=== PATIENT | female | born 1955 | race Caucasian/White ===

== ENCOUNTER 2017-08-12 08:00 | Outpatient (CLI) | payer OTHER | END 2017-08-12 08:01 | disposition home or self-care (01) | LOC: BICCT 08:00 | PROVIDERS: ATTEND Family Medicine | DX: R31.9 Hematuria, unspecified (principal); N20.0 Calculus of kidney | CPT/HCPCS: 74176 ==

== ENCOUNTER 2017-10-12 08:27 | Outpatient (CLI) | payer OTHER ==
[2017-10-12 08:59] LABS: Estimated GFR-MDRD - POC Greater than 90
--- NOTE | 2017-10-12 11:00 | CT ---
CT ABDOMEN AND PELVIS WITH AND WITHOUT IV CONTRAST: DATE: 10/12/17. PROVIDED CLINICAL HISTORY: Hematuria. FINDINGS: No comparison examinations are currently available. Visualized lung bases are free of significant opacity. Diffuse fatty infiltration of the liver is no pablo. Changes of prior cholecystectomy and appendectomy are noted. The spleen, pancreas, and adrenal glands appear unremarkable. There are tiny nonobstructing calculi present within each kidney, greater on the right. No evidence for ureteral or bladder calculus. The urinary bladder is incompletely distended and suboptimally hina luated, but appears grossly normal. There is no bowel dilatation, inflammatory fat stranding, free fluid, or lymph node enlargement appar ent. Scattered vascular calcifications are seen. The osseous structures demonstrate no concerning osteobl astic or osteolytic lesions. IMPRESSION: 1. Tiny bilateral nonobstructing nephrolithiasis. 2. Fatty infiltration of the liver. POS: TPC
== END 2017-10-12 08:28 | disposition home or self-care (01) ==
LOC: CT 08:27
PROVIDERS: ATTEND Urology
DX: R31.0 Gross hematuria (principal); N20.0 Calculus of kidney; K76.0 Fatty (change of) liver, not elsewhere classified
CPT/HCPCS: 74178

== ENCOUNTER 2020-06-26 10:55 | Inpatient (IN) | payer OTHER ==
[2020-06-26 12:47] LABS: Troponin I Less than 0.010 ng/mL (< 0.028)
[2020-06-26] MEDS ORDERED: Nitroglycerin 0.4 MG TAB 1 EACH ONE (15:10)
[2020-06-26] MEDS ORDERED: Acetaminophen 325 MG TAB PO PRN (15:42)
[2020-06-26] MEDS ORDERED: Nitroglycerin 0.4 MG TAB (25 Tab Bottle) SL PRN (15:45)
--- NOTE | 2020-06-26 15:52 | PDOC.HHP ---
Hospitalist HPI - History of Present Illness Chest pain History of Present Illness: Patient is a 64-year-old female with a history of diabetes and hyperlipidemia. Patient presented to the emergency department with chest pain. Patient reports that over the last 20 years she has had approximately 7 heart caths. All of these have been negative. All of them were related to chest pain. The last one was about 6 years ago. Patient reports that she had an episode of chest pain about 1 month ago in the night. She basically decided if it killed her it would kill her and she went back to sleep. She then started having intermittent chest pain again a couple of days ago. Pain lasts for minutes not hours and resolve spontaneously. She has some mild associated shortness of breath and occasional lightheadedness. It feels like a rag being twisted to be run out in her chest. She has no radiation of that pain and no associated nausea. Today when she presented to the emergency room initially it was a 10 out of 10 it has recurred in the emergency department and is a 6 out of 10. Initially she did receive medications including Lopressor, aspirin, nitroglycerin and opiates. With that her pain improved but her blood pressure did drop somewhat. Of note, the patient reports she has been on phentermine for the last 3 to 4 weeks in an effort to lose weight to help her back pain. ED Course: As stated the patient did receive some treatment for her chest pain and had some drop in her blood pressure requiring a bit of fluids. Subsequent chest pain necessitating nitrates did not drop the blood pressure any further. Hospitalist ROS - Review of Systems Constitutional: denies: fever, chills Respiratory: denies: cough, shortness of breath Cardiovascular: reports: chest pain, light headedness. denies: palpitations Gastrointestinal: denies: nausea, vomiting, abdominal pain, diarrhea, constipation All other systems reviewed; all pertinent +/- noted in HPI/Subj - Medication Medications: metFORMIN TueJun 26, 2020 13:34 VALERIE [place] tablet : Strength - 1,000 mg : ORAL Patient Dose: 1000 mg 2 times a day. atorvastatin TueJun 26, 2020 13:34 VALERIE [place] tablet : Strength - 20 mg : ORAL Patient Dose: 20 mg once a day (in the morning). zolpidem oral TueJun 26, 2020 13:35 VALERIE [place] tablet : Strength - 10 mg : ORAL Patient Dose: 10 mg once a day (in the morning). FLUoxetine TueJun 26, 2020 13:35 VALERIE [place] [place] capsule : Strength - 20 mg : ORAL Patient Dose: 20 mg once a day (in the morning). Januvia TueJun 26, 2020 13:36 VALERIE [place] tablet : Strength - 100 mg : ORAL Patient Dose: 100 mg once a day (in the morning). phentermine TueJun 26, 2020 13:36 VALERIE [place] [place] capsule : Strength - 37.5 mg : ORAL Patient Dose: 37.5 mg. traMADol TueJun 26, 2020 13:37 VALERIE [place] [place] capsule,ER biphase 24 hr 25-75 : Strength - 100 mg : ORAL Patient Dose: 50 mg As Needed. Hospitalist History - Past Medical History Cardiac: reports: Hyperlipidemia Musculoskeletal: reports: Chronic low back pain Renal/: reports: Other (Kidney stones) Endocrine: reports: Diabetes - Past Surgical History Other Surgical History: Left knee replacement vaginal hysterectomy. Appendectomy. Cholecystectomy. Back surgery. Spinal cord stimulator. - Family History Other Family History: Both parents had significant coronary disease. - Social History Smoking Status: Never smoker Alcohol: reports: None Drugs: reports: none Living Situation: With Family - Exam General Appearance: NAD, awake alert General - other findings: Appears a bit uncomfortable with the episode of chest pain. Eye: PERRL ENT: normocephalic atraumatic, no oropharyngeal lesions, moist mucosa Neck: supple, symmetric, no JVD, no thyromegaly, no lymphadenopathy, no carotid bruit Heart: RRR, no murmur, no gallops, no rubs, normal peripheral pulses Respiratory: CTAB, no wheezes, no rales, no ronchi, normal chest expansion, no tachypnea, normal percussion Gastrointestinal: soft, non-tender, non-distended, normal bowel sounds, no palpable masses, no hepatomegaly, no splenomegaly, no bruit Extremities: no cyanosis, no clubbing, no edema Skin: normal turgor, no lesions, no rashes Neurological: cranial nerve grossly intact, normal sensation to touch, no weakness, no focal deficits, no new deficit Musculoskeletal: normal tone, normal strength, no muscle wasting Hospitalist Results - Labs Lab results: Troponin I Less than 0.010 ng/mL (< 0.028) 06/26/20 12:02 - EKG Interpretation EKG: Nonspecific T wave changes. - Radiology Interpretation Chest x-ray Status: image reviewed by me, report reviewed by me Additional Comment: Negative Hospitalist H&P A/P - Problem (1) Chest pain Code(s): R07.9 - CHEST PAIN, UNSPECIFIED Status: Acute (2) Hyperlipidemia Code(s): E78.5 - HYPERLIPIDEMIA, UNSPECIFIED Status: Acute (3) Diabetes mellitus Code(s): E11.9 - TYPE 2 DIABETES MELLITUS WITHOUT COMPLICATIONS Status: Acute - Plan Plan: Chest pain: Patient has had 2 - troponins at this point. Her EKG is nondiagnostic but shows no evidence of significant ischemia. She has had a total of 7 heart caths in the past 20 years. All of them were negative. She reports that the last one was about 6 years ago. Her does have some of her records on his phone and is able to show me her information. She had some nonspecific EKG changes then as well. She also had additional work-up including CTA of the chest which was negative. Her symptoms certainly are concerning but given her history it seems less likely that this is cardiac in nature. However she does have risk factors. Will keep in observation. Maintain telemetry. Continue monitoring troponins. If they remain negative will perform a cardiac stress test in the morning. She also has an abnormal BNP. Therefore we will check an echocardiogram. Diabetes mellitus: Continue with Metformin and Januvia. Diabetic diet. Accu-Cheks. Hyperlipidemia: Continue atorvastatin. Chronic back pain: Continue with her tramadol and zolpidem.
[2020-06-26 15:56] LABS: Troponin I Less than 0.010 ng/mL (< 0.028)
[2020-06-26] MEDS ORDERED: traMADol HCl 50 MG TAB PO PRN (16:01)
[2020-06-26] MEDS ORDERED: Zolpidem Tartrate 5 MG TAB PO PRN (16:01)
[2020-06-26] MEDS ORDERED: Dextrose 5% in Water 1,000 ML IV PRN (16:07)
[2020-06-26] MEDS ORDERED: Dextrose 50% Abboject 50 ML SYRINGE SLOW IVP PRN (16:07)
[2020-06-26] MEDS ORDERED: HumaLOG 300 UNITS/3 ML VIAL SC PRN (16:07)
[2020-06-26] MEDS: metFORMIN 500 MG TAB PO SCH (18:39)
[2020-06-26] MEDS ORDERED: Atorvastatin Calcium 20 MG TAB PO SCH (21:00)
[2020-06-26] MEDS: Famotidine 20 MG TAB PO SCH (22:01)
[2020-06-26] MEDS: Alogliptin 25 MG TAB PO SCH (22:01)
[2020-06-26 23:48] VITALS: BMI 25.4
[2020-06-27 04:28] LABS: SARS-CoV-2 MS2 Positive; SARS-CoV-2 N Gene Negative; SARS-CoV-2 S Gene Negative; SARS-CoV-2 by NAA Not Detected (NotDetected); SARS-CoV-2 orf1ab Negative
[2020-06-27 04:34] LABS: #Basophils 0.1 thou/uL (0.0-0.2); #Eosinphils 0.2 thou/uL (0.0-0.7); #Monocytes 0.6 thou/uL (0.11-0.59); #Neutrophils 4.5 thou/uL (1.40-6.50); %Basophils 1.2 % (0.0-1.0); %Eosinophils 2.1 % (0.0-10.0); %Lymphocytes 27.7 % (21.0-51.0); %Monocytes 7.6 % (0.0-10.0); %Neutrophils 61.4 % (42.0-75.0); Hemoglobin 12.7 g/dL (12.0-16.0); Mean Corpuscular HGB CONC 33.1 g/dL (32.0-36.0); Mean Corpuscular Hemoglobin 29.6 pg (27.0-31.0); Mean Corpuscular Volume 89.5 fL (78.0-98.0); Mean Platelet Volume 9.1 fL (7.4-10.4); Platelet Count 176 thou/uL (130-400); Red Blood Cell (RBC) Count 4.28 mill/uL (4.20-5.40); White Blood Cell (WBC) Count 7.4 thou/uL (4.8-10.8)
[2020-06-27 04:55] LABS: Anion Gap 13 mmol/L (10-20); BUN (Urea Nitrogen) 14 mg/dL (9.8-20.1); Calc. Creatinine Clearance 88 mL/min (70-130); Calcium 8.7 mg/dL (7.8-10.44); Carbon Dioxide 27 mmol/L (23-31); Chloride 105 mmol/L (98-107); Estimated GFR-MDRD 80; Glucose 95 mg/dL (80-115); Potassium 4.1 mmol/L (3.5-5.1); Sodium 141 mmol/L (136-145)
[2020-06-27] MEDS: Famotidine 20 MG TAB PO SCH ×2 (08:31→21:46)
[2020-06-27] MEDS: Enoxaparin Sodium 40 MG/0.4 ML SYRINGE SC SCH (08:31)
[2020-06-27] MEDS: metFORMIN 500 MG TAB PO SCH ×2 (08:31→21:45)
[2020-06-27] MEDS: FLUoxetine HCl 20 MG CAP PO SCH (08:31)
[2020-06-27] MEDS ORDERED: Alogliptin 25 MG TAB PO SCH (09:00)
--- NOTE | 2020-06-27 13:35 | NM ---
Exam: Nuclear medicine cardiac stress with EF and wall motion HISTORY: Chest pain. Dyslipidemia. TECHNIQUE: Patient was administered 9.6 mCi of technetium 99m sestamibi for rest imaging and 32.60 mC i of technetium minus is made for stress imaging. Cardiac gating is performed FINDINGS: There is a fixed defect involving the septum. No evidence of reversibility. TID is 1.11 End-diastolic volume is 159 mL End-systolic volume is 222 mL Cardiac gating: There is decreased wall motion and thickening, due to global hypokinesis. 24 % ejecti on fraction IMPRESSION: 1. Fixed defect in the septum. 2. Global hypokinesis. 24 % ejection fraction.
[2020-06-27] MEDS ORDERED: ADENOSINE 60 MG/20 ML VIAL ONE (14:52)
--- NOTE | 2020-06-27 18:14 | PDOC.HOSPP ---
- Subjective Encounter Date: 06/27/20 Encounter Time: 10:30 Subjective: pt up in bed no complains - Objective Vital Signs & Weight: Vital Signs (12 hours) Temp Pulse Resp BP Pulse Ox 06/27/20 12:33 97.4 F L 102 H 16 99/54 L 98 06/27/20 08:00 97.4 F L 88 16 106/53 L 100 Weight Weight 158 lb I&O: 06/26/20 06/27/20 06/28/20 06:59 06:59 06:59 Intake Total 230 Balance 230 Result Diagrams: 06/27/20 04:15 06/27/20 04:15 Additional Labs: Accuchecks 06/27/20 06/27/20 06/26/20 16:55 06:06 20:20 POC Glucose 116 H 100 128 H 06/26/20 16:48 POC Glucose 118 H Hospitalist ROS - Review of Systems Cardiovascular: denies: chest pain, palpitations, orthopnea, paroxysmal noc. dyspnea, edema, light headedness, other Gastrointestinal: denies: nausea, vomiting, abdominal pain, diarrhea, constipation, melena, hematochezia, other Genitourinary: denies: dysuria, frequency, incontinence, hematuria, retention, other - Medication Medications: Active Medications Generic Name Dose Route Start Last Admin Trade Name Chaseq PRN Reason Stop Dose Admin Alogliptin Benzoate 25 mg 06/26/20 21:00 06/26/20 22:01 Alogliptin 25 Mg Tab PO 25 mg HS NOLAN Administration Enoxaparin Sodium 40 mg 06/27/20 09:00 06/27/20 08:31 Enoxaparin Sodium 40 Mg/0.4 Ml Syringe SC 40 mg 0900 NOLAN Administration Famotidine 20 mg 06/26/20 21:00 06/27/20 08:31 Famotidine 20 Mg Tab PO 20 mg BID NOLAN Administration Fluoxetine HCl 20 mg 06/27/20 09:00 06/27/20 08:31 Fluoxetine Hcl 20 Mg Cap PO 20 mg DAILY NOLAN Administration - Exam Neck: negative: supple, symmetric, no JVD, no thyromegaly, no lymphadenopathy, no carotid bruit, JVD Heart: negative: RRR, no murmur, no gallops, no rubs, normal peripheral pulses, irregular, diminshed peripheral pulses, murmur present, II/IV, III/IV Respiratory: negative: CTAB, no wheezes, no rales, no ronchi, normal chest expansion, no tachypnea, normal percussion, rales, rhonchi, tachypneic, wheezes Hosp A/P (1) Acute systolic heart failure Code(s): I50.21 - ACUTE SYSTOLIC (CONGESTIVE) HEART FAILURE Status: Acute (2) Chest pain Code(s): R07.9 - CHEST PAIN, UNSPECIFIED Status: Acute (3) Diabetes mellitus Code(s): E11.9 - TYPE 2 DIABETES MELLITUS WITHOUT COMPLICATIONS Status: Acute - Plan Patient's stress test indicated fixed defect and a low EF of 25%. We will get records from [facility]. Her last catheterization was in 2014. Patient takes phentermine for weight loss. She states that she has taken it 3 times. She took it last month. However her symptoms of chest pain were there prior to that. Will consult cardiology. We will check a TSH. Start her on low-dose carvedilol. We will also start her on aspirin.
[2020-06-27] MEDS: traMADol HCl 50 MG TAB PO PRN (19:44)
[2020-06-27] MEDS: Atorvastatin Calcium 20 MG TAB PO SCH (21:46)
[2020-06-27] MEDS: Zolpidem Tartrate 5 MG TAB PO PRN (21:46)
[2020-06-27] MEDS: Alogliptin 25 MG TAB PO SCH ×2 (21:46→22:37)
[2020-06-28 04:39] LABS: #Eosinphils 0.1 thou/uL (0.0-0.7); #Lymphocytes 2.2 thou/uL (1.20-3.40); #Monocytes 0.5 thou/uL (0.11-0.59); %Basophils 0.3 % (0.0-1.0); %Eosinophils 1.9 % (0.0-10.0); %Monocytes 6.8 % (0.0-10.0); Hemoglobin 13.8 g/dL (12.0-16.0); Mean Corpuscular HGB CONC 33.4 g/dL (32.0-36.0); Mean Corpuscular Hemoglobin 30.1 pg (27.0-31.0); Mean Corpuscular Volume 90.1 fL (78.0-98.0); Mean Platelet Volume 9.6 fL (7.4-10.4); Platelet Count 181 thou/uL (130-400); Red Blood Cell (RBC) Count 4.58 mill/uL (4.20-5.40); White Blood Cell (WBC) Count 6.8 thou/uL (4.8-10.8)
[2020-06-28 05:00] LABS: Anion Gap 12 mmol/L (10-20); BUN (Urea Nitrogen) 14 mg/dL (9.8-20.1); Calc. Creatinine Clearance 85 mL/min (70-130); Calcium 9.2 mg/dL (7.8-10.44); Carbon Dioxide 27 mmol/L (23-31); Chloride 107 mmol/L (98-107); Estimated GFR-MDRD 77; Glucose 101 mg/dL (80-115); Potassium 4.4 mmol/L (3.5-5.1); Sodium 142 mmol/L (136-145)
[2020-06-28] MEDS: traMADol HCl 50 MG TAB PO PRN (10:08)
[2020-06-28] MEDS: metFORMIN 500 MG TAB PO SCH ×2 (10:09→20:45)
[2020-06-28] MEDS: Enoxaparin Sodium 40 MG/0.4 ML SYRINGE SC SCH (10:09)
[2020-06-28] MEDS: Famotidine 20 MG TAB PO SCH ×2 (10:09→20:43)
[2020-06-28] MEDS: FLUoxetine HCl 20 MG CAP PO SCH (10:09)
[2020-06-28] MEDS: Aspirin 81 mg Enteric Coated Tablet PO SCH (10:09)
[2020-06-28] MEDS: Carvedilol 3.125 MG TAB PO SCH ×2 (10:09→17:25)
[2020-06-28] MEDS ORDERED: Communication Order-Pharmacy FS SCH (12:15)
--- NOTE | 2020-06-28 12:55 | CON ---
DATE OF CONSULTATION: 06/28/2020 REASON FOR CONSULTATION: Severely depressed left ventricular function, chest pain. HISTORY OF PRESENT ILLNESS: Ms. Knox is a 64-year-old woman. She has been having pressure and heaviness in her chest and severe fatigue with any type of exertion since she can walk just a very short distance and became extremely fatigued and worn out. This has been gradually for the last few weeks. Finally, she has been admitted to the hospital for evaluation. The patient did undergo cardiac catheterization. She said "I have had several cardiac catheterizations," most recently was in 2014, it was done at [facility] in [place], it was normal with no evidence of any blockage. The patient was having chest pain at that time, but it is more intense now. The patient continues to have chest pain intermittently here at rest. HOME MEDICATIONS: She takes, 1. Januvia. 2. Atorvastatin. 3. Metformin. 4. Tramadol. 5. Zolpidem. Her blood pressure tends to run low. ALLERGIES: NO ALLERGIES. SOCIAL HISTORY: No alcohol or tobacco. REVIEW OF SYSTEMS: CONSTITUTIONAL: No significant weight gain or loss. VISION: No changes. HEARING: No changes. PULMONARY: No cough or wheezing. GASTROINTESTINAL: No nausea, vomiting, or diarrhea. SKIN: No rashes. NEUROLOGIC: No unilateral weakness or numbness. PSYCHIATRIC: No unusual depression or anxiety. PHYSICAL EXAMINATION: GENERAL: This is a very pleasant patient, in no distress. VITAL SIGNS: Blood pressure earlier this morning is 88/51, most recently was 111/57, but usually the systolics below 100. Pulse 100. HEENT: Eyes, sclerae nonicteric. Mouth, mucous membranes moist. NECK: Supple. No lymphadenopathy. LUNGS: Clear. HEART: No murmur, rub, or gallop. ABDOMEN: Soft and nontender. No hepatosplenomegaly. EXTREMITIES: Warm and dry. No clubbing or cyanosis. She has no edema. Good peripheral pulses. LABORATORY DATA: EKG sinus rhythm, occasional premature ventricular contraction, nonspecific T-waves. COVID serology negative. Echocardiogram showed severely depressed left ventricular function 15% to 20% with severe mitral regurgitation. Stress testing was also done. The ejection fraction calculated by that mechanism was 24% with a fixed septal defect. ASSESSMENT: 1. Severely depressed left ventricular systolic function. 2. Severe mitral regurgitation. 3. Relatively low blood pressure. 4. Normal cardiac catheterization according to the patient at 2014. At this time, it is likely that she is having cardiomyopathy. However, in view of the continued pressure intermittently and tightness in her chest, catheterization is indicated. Discussed risk of stroke, heart attack, iodine allergy, loss of blood supply to leg or kidney, stent thrombosis, stent restenosis. The patient understands that any intervention will be much higher risk than usual due to the severely depressed left ventricular function. Long-term prognosis is guarded. The patient will need a LifeVest prior to discharge. She understands and will proceed to catheterization on Tuesday. Job ID: [id number]
--- NOTE | 2020-06-28 17:13 | EKG ---
Test Reason : Blood Pressure : / mmHG Vent. Rate : 090 BPM Atrial Rate : 090 BPM P-R Int : 128 ms QRS Dur : 084 ms QT Int : 372 ms P-R-T Axes : 051 005 059 degrees QTc Int : 455 ms Sinus rhythm with frequent AV dual-paced complexes T wave abnormality, consider anterior ischemia Abnormal ECG Confirmed by NUNU ROUSE DO ([id number]), news copy editor THANH SIGALA ([id number]) on 06/28/2020 5:12:35 PM Referred By: Confirmed By:NUNU ROUSE DO
--- NOTE | 2020-06-28 19:53 | PDOC.HOSPP ---
- Subjective Encounter Date: 06/28/20 Encounter Time: 13:00 Subjective: Patient was seen and examined in bed. She denied any ongoing chest pain or shortness of breath. She does note easy fatigability and walking to the bathroom back No significant events overnight - Objective Vital Signs & Weight: Vital Signs (12 hours) Temp Pulse Resp BP BP Pulse Ox 06/28/20 15:38 97.9 F 92 18 104/53 L 98 06/28/20 11:00 98 F 102 H 18 111/57 L 97 06/28/20 10:00 97 06/28/20 08:05 97.5 F L 86 15 112/53 L 97 Weight Weight 159 lb 11.2 oz I&O: 06/27/20 06/28/20 06/29/20 06:59 06:59 06:59 Intake Total 230 620 900 Balance 230 620 900 Result Diagrams: 06/28/20 04:10 06/28/20 04:10 Additional Labs: Accuchecks 06/28/20 06/28/20 06/28/20 17:34 10:12 06:36 POC Glucose 134 H 184 H 108 H 06/27/20 21:34 POC Glucose 129 H Hospitalist ROS - Medication Medications: Active Medications Generic Name Dose Route Start Last Admin Trade Name Freq PRN Reason Stop Dose Admin Alogliptin Benzoate 25 mg 06/26/20 21:00 06/27/20 21:46 Alogliptin 25 Mg Tab PO 25 mg HS NOLAN Administration Alogliptin Benzoate 25 mg 06/27/20 21:00 06/27/20 22:37 Alogliptin 25 Mg Tab PO Not Given HS NOLAN Aspirin 81 mg 06/28/20 09:00 06/28/20 10:09 Aspirin 81 Mg Enteric Coated Tablet PO 81 mg DAILY NOLAN Administration Atorvastatin Calcium 20 mg 06/27/20 21:00 06/27/20 21:46 Atorvastatin Calcium 20 Mg Tab PO 20 mg HS NOLAN Administration Carvedilol 3.125 mg 06/28/20 08:00 06/28/20 17:25 Carvedilol 3.125 Mg Tab PO 3.125 mg BID-WM NOLAN Administration Enoxaparin Sodium 40 mg 06/27/20 09:00 06/28/20 10:09 Enoxaparin Sodium 40 Mg/0.4 Ml Syringe SC 06/29/20 21:00 40 mg 0900 NOLAN Administration Famotidine 20 mg 06/26/20 21:00 06/28/20 10:09 Famotidine 20 Mg Tab PO 20 mg BID NOLAN Administration Fluoxetine HCl 20 mg 06/27/20 09:00 06/28/20 10:09 Fluoxetine Hcl 20 Mg Cap PO 20 mg DAILY NOLAN Administration Metformin HCl 1,000 mg 06/27/20 21:00 06/28/20 10:09 Metformin 500 Mg Tab PO 1,000 mg BID NOLAN Administration Tramadol HCl 50 mg 06/27/20 15:37 06/28/20 10:08 Tramadol Hcl 50 Mg Tab PO 50 mg BID PRN Administration Mild Pain (1-3) Zolpidem Tartrate 10 mg 06/27/20 14:54 06/27/20 21:46 Zolpidem Tartrate 5 Mg Tab PO 10 mg HS PRN Administration Insomnia - Exam General Appearance: awake alert ENT: normocephalic atraumatic, no oropharyngeal lesions Heart: RRR, no murmur, no gallops, normal peripheral pulses Respiratory: no wheezes, no rales, no ronchi, no tachypnea Gastrointestinal: soft, non-tender, non-distended, normal bowel sounds Extremities: no cyanosis, no clubbing, no edema Hosp A/P - Plan 64-year-old female patient with a history of coronary disease status post several stents admitted on account of chest pain. Further evaluation notes severely reduced EF. Admission status will be changed to inpatient for cardiac catheterization on Tuesday as per cardiology. Acute systolic heart failure Etiology unclear Continue admission for cardiac cath on Tuesday. Continue telemetry monitoring. Chest pain S/p stress test Continue as needed nitro/beta-blockers Continue aspirin Monitor on telemetry. Carotid artery disease Status post several stents Continue goal-directed therapy. Diabetes mellitus Correctional insulin
[2020-06-28] MEDS: Alogliptin 25 MG TAB PO SCH ×2 (20:44→22:41)
[2020-06-28] MEDS: Atorvastatin Calcium 20 MG TAB PO SCH (20:46)
[2020-06-28] MEDS: Zolpidem Tartrate 5 MG TAB PO PRN (20:46)
[2020-06-29] MEDS: traMADol HCl 50 MG TAB PO PRN (02:32)
[2020-06-29 04:13] LABS: #Eosinphils 0.1 thou/uL (0.0-0.7); #Lymphocytes 2.2 thou/uL (1.20-3.40); #Monocytes 0.5 thou/uL (0.11-0.59); #Neutrophils 4.3 thou/uL (1.40-6.50); %Basophils 0.5 % (0.0-1.0); %Eosinophils 2.1 % (0.0-10.0); %Lymphocytes 30.4 % (21.0-51.0); %Monocytes 7.2 % (0.0-10.0); %Neutrophils 59.9 % (42.0-75.0); Hemoglobin 12.4 g/dL (12.0-16.0); Mean Corpuscular HGB CONC 32.2 g/dL (32.0-36.0); Mean Corpuscular Hemoglobin 28.8 pg (27.0-31.0); Mean Corpuscular Volume 89.4 fL (78.0-98.0); Mean Platelet Volume 9.4 fL (7.4-10.4); Platelet Count 181 thou/uL (130-400); RBC Distribution Width 12.1 % (11.5-14.5); Red Blood Cell (RBC) Count 4.33 mill/uL (4.20-5.40); White Blood Cell (WBC) Count 7.2 thou/uL (4.8-10.8)
[2020-06-29 04:25] LABS: Anion Gap 15 mmol/L (10-20); BUN (Urea Nitrogen) 11 mg/dL (9.8-20.1); Calc. Creatinine Clearance 90 mL/min (70-130); Calcium 8.8 mg/dL (7.8-10.44); Carbon Dioxide 23 mmol/L (23-31); Chloride 106 mmol/L (98-107); Estimated GFR-MDRD 82; Glucose 91 mg/dL (80-115); Potassium 3.5 mmol/L (3.5-5.1); Sodium 140 mmol/L (136-145)
[2020-06-29] MEDS: Enoxaparin Sodium 40 MG/0.4 ML SYRINGE SC SCH (09:45)
[2020-06-29] MEDS: Aspirin 81 mg Enteric Coated Tablet PO SCH (09:45)
[2020-06-29] MEDS: FLUoxetine HCl 20 MG CAP PO SCH (09:46)
[2020-06-29] MEDS: metFORMIN 500 MG TAB PO SCH ×2 (09:46→22:07)
[2020-06-29] MEDS: Famotidine 20 MG TAB PO SCH ×2 (09:46→22:05)
[2020-06-29] MEDS: Carvedilol 3.125 MG TAB PO SCH ×2 (09:52→17:10)
--- NOTE | 2020-06-29 19:16 | PDOC.HOSPP ---
- Subjective Encounter Date: 06/29/20 Encounter Time: 15:00 Subjective: Was seen and examined in bed. She had a generally good night. Mild brief tightness in the chest this morning which resolved spontaneously. The time of my evaluation. She denied any chest pain or shortness of breath. - Objective Vital Signs & Weight: Vital Signs (12 hours) Temp Pulse Resp BP BP Pulse Ox 06/29/20 15:48 98.2 F 75 15 109/54 L 97 06/29/20 12:00 97.8 F 97 18 96/62 96 06/29/20 09:56 99/54 L 06/29/20 08:00 96.4 F L 94 16 102/57 L 96 Weight Weight 158 lb 6.4 oz I&O: 06/28/20 06/29/20 06/30/20 06:59 06:59 06:59 Intake Total 620 1220 Balance 620 1220 Result Diagrams: 06/29/20 03:34 06/29/20 03:34 Additional Labs: Accuchecks 06/29/20 06/29/20 06/28/20 16:35 06:21 20:42 POC Glucose 101 H 96 111 H Hospitalist ROS - Medication Medications: Active Medications Generic Name Dose Route Start Last Admin Trade Name Freq PRN Reason Stop Dose Admin Alogliptin Benzoate 25 mg 06/26/20 21:00 06/28/20 22:41 Alogliptin 25 Mg Tab PO Not Given HS NOLAN Alogliptin Benzoate 25 mg 06/27/20 21:00 06/28/20 20:44 Alogliptin 25 Mg Tab PO 25 mg HS NOLAN Administration Aspirin 81 mg 06/28/20 09:00 06/29/20 09:45 Aspirin 81 Mg Enteric Coated Tablet PO 81 mg DAILY NOLAN Administration Atorvastatin Calcium 20 mg 06/27/20 21:00 06/28/20 20:46 Atorvastatin Calcium 20 Mg Tab PO 20 mg HS NOLAN Administration Carvedilol 3.125 mg 06/28/20 08:00 06/29/20 17:10 Carvedilol 3.125 Mg Tab PO Not Given BID-WM NOLAN Enoxaparin Sodium 40 mg 06/27/20 09:00 06/29/20 09:45 Enoxaparin Sodium 40 Mg/0.4 Ml Syringe SC 06/29/20 21:00 40 mg 0900 NOLAN Administration Famotidine 20 mg 06/26/20 21:00 06/29/20 09:46 Famotidine 20 Mg Tab PO 20 mg BID NOLAN Administration Fluoxetine HCl 20 mg 06/27/20 09:00 06/29/20 09:46 Fluoxetine Hcl 20 Mg Cap PO 20 mg DAILY NOLAN Administration Metformin HCl 1,000 mg 06/27/20 21:00 06/29/20 09:46 Metformin 500 Mg Tab PO 1,000 mg BID NOLAN Administration Tramadol HCl 50 mg 06/27/20 15:37 06/29/20 02:32 Tramadol Hcl 50 Mg Tab PO 50 mg BID PRN Administration Mild Pain (1-3) Zolpidem Tartrate 10 mg 06/27/20 14:54 06/28/20 20:46 Zolpidem Tartrate 5 Mg Tab PO 10 mg HS PRN Administration Insomnia - Exam General Appearance: awake alert Heart: RRR, no murmur, no gallops, no rubs Respiratory: no wheezes, no rales, no ronchi, no tachypnea Gastrointestinal: soft, non-tender, non-distended, no palpable masses Extremities: no cyanosis, no clubbing, no edema Neurological: cranial nerve grossly intact, no focal deficits Psychiatric: normal affect, A&O x 3 Hosp A/P - Plan 64-year-old female patient with a history of coronary disease status post several stents admitted on account of chest pain. Further evaluation notes severely reduced EF. She is awaiting cardiac catheterization on Tuesday. Acute systolic heart failure Etiology unclear Continue admission for cardiac cath on Tuesday. Continue telemetry monitoring. Chest pain S/p stress test Continue as needed nitro/beta-blockers Continue aspirin Monitor on telemetry. Carotid artery disease Status post several stents Continue goal-directed therapy. Diabetes mellitus Correctional insulin [place] prophylaxis CODE STATUSfull code
[2020-06-29] MEDS: Zolpidem Tartrate 5 MG TAB PO PRN (22:05)
[2020-06-29] MEDS: Alogliptin 25 MG TAB PO SCH ×2 (22:06→22:07)
[2020-06-29] MEDS: Atorvastatin Calcium 20 MG TAB PO SCH (22:06)
[2020-06-30] MEDS: Aspirin 81 mg Enteric Coated Tablet PO SCH (05:29)
[2020-06-30] MEDS ORDERED: Diazepam 5 MG TAB PO SCH ×2 (06:00→10:00)
[2020-06-30] MEDS: Sodium Chloride 0.9% 1,000 ML IV SCH ×3 (07:30→20:40)
[2020-06-30] MEDS: metFORMIN 500 MG TAB PO SCH ×2 (08:21→21:00)
[2020-06-30] MEDS: Carvedilol 3.125 MG TAB PO SCH ×2 (08:48→18:06)
[2020-06-30] MEDS: Famotidine 20 MG TAB PO SCH ×2 (08:48→20:39)
[2020-06-30] MEDS: FLUoxetine HCl 20 MG CAP PO SCH (08:48)
[2020-06-30] MEDS ORDERED: Iopamidol 370 76% 100 ML VIAL ONE (09:44)
[2020-06-30] MEDS ORDERED: Midazolam HCl 2 mg/2 ml Vial ONE (10:24)
[2020-06-30] MEDS ORDERED: Fentanyl 100 MCG/2 ML VIAL ONE (10:24)
[2020-06-30] MEDS ORDERED: Acetaminophen/Codeine 30-300mg Tablet PO PRN ×2 (10:54)
[2020-06-30] MEDS ORDERED: Nitroglycerin 0.4 MG TAB (25 Tab Bottle) SL PRN (10:54)
[2020-06-30] MEDS ORDERED: Sodium Chloride 0.9% 200 ML IV PRN (10:54)
--- NOTE | 2020-06-30 17:02 | PDOC.HOSPP ---
- Subjective Encounter Date: 06/30/20 Subjective: Patient was seen and examined in bed. He just come back from cardiac catheterization with negative results. She denies any chest pain or shortness of breath. No significant events overnight. - Objective Vital Signs & Weight: Vital Signs (12 hours) Temp Pulse Resp BP BP Pulse Ox 06/30/20 16:33 97.5 F L 61 20 101/64 97 06/30/20 08:00 97.7 F 88 14 95/56 L 96 Weight Weight 155 lb 8 oz I&O: 06/29/20 06/30/20 07/01/20 06:59 06:59 06:59 Intake Total 1220 570 Balance 1220 570 Result Diagrams: 06/29/20 03:34 06/29/20 03:34 Additional Labs: Accuchecks 06/30/20 06/30/20 06/29/20 16:35 06:39 20:41 POC Glucose 143 H 111 H 115 H EKG Reviewed by me: Yes (Few PVCs noted) Hospitalist ROS - Medication Medications: Active Medications Generic Name Dose Route Start Last Admin Trade Name Freq PRN Reason Stop Dose Admin Alogliptin Benzoate 25 mg 06/27/20 21:00 06/29/20 22:06 Alogliptin 25 Mg Tab PO Not Given HS NOLAN Aspirin 81 mg 06/28/20 09:00 06/30/20 05:29 Aspirin 81 Mg Enteric Coated Tablet PO 81 mg DAILY NOLAN Administration Atorvastatin Calcium 20 mg 06/27/20 21:00 06/29/20 22:06 Atorvastatin Calcium 20 Mg Tab PO 20 mg HS NOLAN Administration Carvedilol 3.125 mg 06/28/20 08:00 06/30/20 08:48 Carvedilol 3.125 Mg Tab PO Not Given BID-WM NOLAN Diazepam 5 mg 06/30/20 10:00 06/30/20 10:03 Diazepam 5 Mg Tab PO 06/30/20 21:00 5 mg WILLCALL NOLAN Administration Famotidine 20 mg 06/26/20 21:00 06/30/20 08:48 Famotidine 20 Mg Tab PO 20 mg BID NOLAN Administration Fluoxetine HCl 20 mg 06/27/20 09:00 06/30/20 08:48 Fluoxetine Hcl 20 Mg Cap PO 20 mg DAILY NOLAN Administration Sodium Chloride 1,000 mls @ 100 mls/hr 06/30/20 06:00 06/30/20 07:30 Normal Saline 0.9% IV 1,000 mls .Q10H NOLAN Administration Metformin HCl 1,000 mg 06/27/20 21:00 06/30/20 08:21 Metformin 500 Mg Tab PO Not Given BID NOLAN Tramadol HCl 50 mg 06/27/20 15:37 06/29/20 02:32 Tramadol Hcl 50 Mg Tab PO 50 mg BID PRN Administration Mild Pain (1-3) Zolpidem Tartrate 10 mg 06/27/20 14:54 06/29/20 22:05 Zolpidem Tartrate 5 Mg Tab PO 10 mg HS PRN Administration Insomnia - Exam General Appearance: awake alert Heart: RRR, no murmur, no gallops, no rubs, normal peripheral pulses Respiratory: CTAB, no wheezes, no rales, no ronchi Gastrointestinal: soft, non-tender, non-distended, normal bowel sounds Extremities: no cyanosis, no clubbing, no edema Neurological: cranial nerve grossly intact, no weakness Psychiatric: normal affect, A&O x 3 Hosp A/P - Plan 64-year-old female patient with a history of coronary disease status post several stents admitted on account of chest pain. Further evaluation notes severely reduced EF. She was taken down for cardiac catheterization today. Acute systolic heart failure Etiology unclear S/p cardiac catheterization Awaiting cardiology reports. Likely LifeVest prior to discharge Appreciate cardiology input Chest pain S/p stress test Continue as needed nitro/beta-blockers Continue aspirin Monitor on telemetry. Diabetes mellitus Correctional insulin [place] prophylaxis CODE STATUSfull code
[2020-06-30] MEDS: Atorvastatin Calcium 20 MG TAB PO SCH (20:39)
[2020-06-30] MEDS: Zolpidem Tartrate 5 MG TAB PO PRN (20:39)
[2020-06-30] MEDS: Alogliptin 25 MG TAB PO SCH (21:00)
[2020-07-01] MEDS: Sodium Chloride 0.9% 1,000 ML IV SCH (06:45)
[2020-07-01 07:46] LABS: #Eosinphils 0.2 thou/uL (0.0-0.7); #Lymphocytes 1.7 thou/uL (1.20-3.40); #Monocytes 0.4 thou/uL (0.11-0.59); #Neutrophils 4.1 thou/uL (1.40-6.50); %Basophils 0.7 % (0.0-1.0); %Eosinophils 2.5 % (0.0-10.0); %Lymphocytes 26.2 % (21.0-51.0); %Monocytes 6.3 % (0.0-10.0); %Neutrophils 64.3 % (42.0-75.0); Hemoglobin 12.3 g/dL (12.0-16.0); Mean Corpuscular HGB CONC 32.7 g/dL (32.0-36.0); Mean Corpuscular Volume 88.9 fL (78.0-98.0); Mean Platelet Volume 9.5 fL (7.4-10.4); Platelet Count 147 thou/uL (130-400); Red Blood Cell (RBC) Count 4.24 mill/uL (4.20-5.40); White Blood Cell (WBC) Count 6.3 thou/uL (4.8-10.8)
[2020-07-01 08:18] LABS: Anion Gap 12 mmol/L (10-20); BUN (Urea Nitrogen) 10 mg/dL (9.8-20.1); Calc. Creatinine Clearance 98 mL/min (70-130); Calcium 8.3 mg/dL (7.8-10.44); Carbon Dioxide 24 mmol/L (23-31); Chloride 110 mmol/L (98-107); Estimated GFR-MDRD 90; Glucose 122 mg/dL (80-115); Potassium 3.8 mmol/L (3.5-5.1); Sodium 142 mmol/L (136-145)
[2020-07-01] MEDS: FLUoxetine HCl 20 MG CAP PO SCH (09:20)
[2020-07-01] MEDS: metFORMIN 500 MG TAB PO SCH (09:20)
[2020-07-01] MEDS: Famotidine 20 MG TAB PO SCH (09:20)
[2020-07-01] MEDS: Carvedilol 3.125 MG TAB PO SCH (09:21)
[2020-07-01] MEDS: Aspirin 81 mg Enteric Coated Tablet PO SCH (09:21)
[2020-07-01] MEDS: traMADol HCl 50 MG TAB PO PRN (09:23)
[2020-07-01] MEDS ORDERED: Furosemide 20 MG/2 ML VIAL SLOW IVP SCH (09:30)
[2020-07-01] MEDS ORDERED: Potassium Chloride 20 MEQ TAB PO SCH (09:30)
[2020-07-01] MEDS ORDERED: Spironolactone 25 MG TAB PO SCH (09:45)
--- NOTE | 2020-07-01 10:25 | PRG ---
DATE OF SERVICE: SUBJECTIVE: Ms. Knox is breathing okay, sitting up and when she tries to lie flat, she is short of breath. She is not having chest pain or pressure, but she is uncomfortable trying to lie flat. OBJECTIVE: VITAL SIGNS: Her blood pressure is still in the mid 90s, systolic. Pulse in the 80s. LUNGS: Clear. CARDIAC: Normal S1, normal S2. ABDOMEN: Soft and nontender. EXTREMITIES: No edema. PERTINENT LABORATORY DATA: Potassium is 3.8. ASSESSMENT: 1. Severe cardiomyopathy with ejection fraction of 15% to 20%. 2. Relatively low blood pressure. 3. Heart failure, probably worsened by the intravenous fluid. PLAN: 1. Hep-Lock IV. 2. Give her dose of Lasix. 3. Start spironolactone. 4. Continue Coreg. 5. Order has been placed for LifeVest. Hopefully, the patient could be released home this afternoon if she is doing well. Long-term prognosis is guarded. Job ID: [id number]
[2020-07-01 11:48] VITALS: BP 102/65; TEMP 96.3
--- NOTE | 2020-07-01 19:16 | PDOC.DS.DS ---
Provider - Provider Date of Admission: 06/26/20 11:41 Date of Discharge: 07/01/20 Admitting Provider: Sam Vo MD Primary Care Physician: Dalton Mensah DO Course - Hospital Course Hospital Course: This is a 64-year-old female patient history of diabetes mellitus and hyperlipidemia who presented with chest pain She notes over the past couple of days because she is however several catheterizations without any significant coronary disease. On presentation she was evaluated and had stress test and echocardiogram noted severely reduced ejection fraction of unclear etiology. She underwent cardiac catheterization which revealed no significant coronary art mignon disease. She was discharged on heart failure medications as she follow-up with cardiology. Her long-term prognosis is however guarded Resuscitation Status: 06/26/20 15:42 Resuscitation Status Routine Resuscitation Status: FULL: Full Resuscitation - Labs Lab Results: 07/01/20 07:31 07/01/20 07:31 Abnormal Lab Results - Last 48 hrs 07/01/20 07:31: Chloride 110 H - Physical Exam Vitals: Vital Signs (12 hours) Temp Pulse Resp BP BP Pulse Ox 07/01/20 11:46 96.3 F L 98 16 102/65 97 07/01/20 07:39 97 07/01/20 07:21 97.7 F 97 12 96/52 L 97 Weight Weight 159 lb 6.4 oz Physical Exam: The patient was seen and examined on the day of discharge. General: Patient in bed in no acute distress. Respiratory system: Air entry adequate bilaterally. Cardiovascular system: S1-S2 present. No murmurs gallops or rubs. Abdomen: Benign Extremities: No abnormality detected. Problem - Discharge Plan Assessment: Heart failure with reduced ejection fraction Discharged on heart failure medications Follow-up with cardiology. Severe cardiomyopathy Diabetes mellitus Plan - Discharge Medications Prescriptions: Nitroglycerin [Nitrostat] 0.4 mg SL Q5MIN PRN #30 tab PRN Reason: Chest Pain Spironolactone [Aldactone] 25 mg PO QAM-WM #30 tab Carvedilol [Coreg] 3.125 mg PO BID-WM #60 tab Aspirin [Ecotrin Low Strength] 81 mg PO DAILY #30 tab FLUoxetine HCl [Prozac] 20 mg PO DAILY #30 cap Home Medications: Medication Instructions Recorded Confirmed Type Atorvastatin Calcium 20 mg PO HS 06/26/20 06/26/20 History Zolpidem Tartrate [Ambien] 10 mg PO HS PRN 06/26/20 06/26/20 History metFORMIN HCl [Metformin HCl] 2,000 mg PO HS 06/26/20 06/26/20 History sitaGLIPtin Phosphate [Januvia] 100 mg PO HS 06/26/20 06/26/20 History traMADol HCl [Tramadol HCl] 50 mg PO BID PRN 06/26/20 06/26/20 History Aspirin [Ecotrin Low Strength] 81 mg PO DAILY #30 tab 07/01/20 Rx Carvedilol [Coreg] 3.125 mg PO BID-WM #60 tab 07/01/20 Rx FLUoxetine HCl [Prozac] 20 mg PO DAILY #30 cap 07/01/20 Rx Nitroglycerin [Nitrostat] 0.4 mg SL Q5MIN PRN #30 tab 07/01/20 Rx Spironolactone [Aldactone] 25 mg PO QAM-WM #30 tab 07/01/20 Rx Allergies: No Known Allergies Allergy (Verified 10/20/13 19:21) - Discharge Instructions Activity:: Activity as Tolerated Therapies:: Outpatient Cardiac Rehab - Follow up Plan Referrals: Cardiac Rehab - [facility] [Outside] - 7 Days (Please call to set up your Outpatient Cardc Rehab if they have not contacted you !) Dalton Mensah, [Primary Care Provider] - 07/07/20 12:40 pm (Bring your list of medications , and only one visitor with this visit. You can e CHECK-IN through your [facility] portal.) Holley Thompson MD [Active] - 3-4 Weeks Disposition: HOME Quality - Care Measures CORE MEASURES:: HF - Stroke/TIA Did you prescribe antithrombotic therapy?: Yes Did you prescribe anticoagulant for A Fib/Flutter?: No Specify reason for no DC anticoagulant: Treatment not indicated Did you prescribe a statin medication?: Yes
[2020-07-02] MEDS ORDERED: Spironolactone 25 MG TAB PO SCH (08:00)
== END 2020-07-01 16:45 | disposition home or self-care (01) | DRG 287 ==
LOC: ERS 10:55 → OBSVTOIN 11:41 → ERHOLD 11:41 → 2NO 19:25
PROVIDERS: ADMIT Internal Medicine; ATTEND Internal Medicine
PROC: B2111ZZ Fluoroscopy of Multiple Coronary Arteries using Low Osmolar Contrast (ICD-10-PCS; principal; 2020-06-30)
PROC: B2151ZZ Fluoroscopy of Left Heart using Low Osmolar Contrast (ICD-10-PCS; 2020-06-30)
PROC: 4A023N7 Measurement of Cardiac Sampling and Pressure, Left Heart, Percutaneous Approach (ICD-10-PCS; 2020-06-30)
DX: I50.21 Acute systolic (congestive) heart failure (principal); I42.9 Cardiomyopathy, unspecified; E78.00 Pure hypercholesterolemia, unspecified; R07.9 Chest pain, unspecified; G89.29 Other chronic pain; I34.0 Nonrheumatic mitral (valve) insufficiency; M54.5 Low back pain; E11.9 Type 2 diabetes mellitus without complications; Z79.899 Other long term (current) drug therapy; Z79.84 Long term (current) use of oral hypoglycemic drugs; Z90.49 Acquired absence of other specified parts of digestive tract; Z90.710 Acquired absence of both cervix and uterus; Z20.828 Contact with and (suspected) exposure to other viral communicable diseases
CPT/HCPCS: 36415; 36416; 76942; 78452; 80048; 84443; 85025; 87635; 93005; 93017; 93306; 93458; 93798; 94760; 96372; A9500; G0378; J0153; J1644; J1650; J1940; J2250; J3010; Q9967; U0003

== ENCOUNTER 2020-10-20 16:29 | Inpatient (IN) | payer OTHER, MEDICARE ==
[2020-10-20] MEDS ORDERED: Fentanyl 100 MCG/2 ML VIAL ONE (18:27)
[2020-10-20] MEDS ORDERED: Enoxaparin Sodium 80 MG/0.8 ML SYRINGE ONE (18:29)
[2020-10-20] MEDS ORDERED: Nitroglycerin 0.4 MG TAB (25 Tab Bottle) SL PRN (20:26)
[2020-10-20] MEDS ORDERED: Morphine 2 MG/ML VIAL SLOW IVP PRN (20:28)
[2020-10-20] MEDS ORDERED: Dextrose 50% Abboject 50 ML SYRINGE SLOW IVP PRN (20:30)
[2020-10-20] MEDS ORDERED: Dextrose 5% in Water 1,000 ML IV PRN (20:30)
[2020-10-20] MEDS ORDERED: HumaLOG 300 UNITS/3 ML VIAL SC PRN ×2 (20:30)
[2020-10-20 21:14] LABS: Troponin I Less than 0.010 ng/mL (< 0.028)
[2020-10-20] MEDS ORDERED: Sodium Chloride 0.9% 500 ML IV SCH (22:30)
[2020-10-20] MEDS: Atorvastatin Calcium 20 MG TAB PO SCH (22:43)
[2020-10-20] MEDS: Nitroglycerin 2% Ointment 1 INCH/1 GM Packet TOP SCH ×2 (22:43→23:08)
[2020-10-20 23:07] VITALS: BMI 26.0
[2020-10-20] MEDS ORDERED: Norepinephrine 8 MG/0.9% NS 250 ML IVPB SCH (23:45)
[2020-10-20 23:52] VITALS: BP 118/54
[2020-10-21 04:49] LABS: SARS-CoV-2 PCR by NAA Not Detected (NotDetected)
[2020-10-21] MEDS: Nitroglycerin 2% Ointment 1 INCH/1 GM Packet TOP SCH (06:48)
[2020-10-21] MEDS: Aspirin Chewable 81 MG TAB PO SCH (09:44)
[2020-10-21] MEDS: FLUoxetine HCl 20 MG CAP PO SCH (09:44)
[2020-10-21] MEDS ORDERED: Iopamidol-370 76% 500 ML 1 ML ONE (11:27)
[2020-10-21] MEDS: Ivabradine 5 MG TAB PO SCH (21:09)
[2020-10-21] MEDS: Atorvastatin Calcium 20 MG TAB PO SCH (21:09)
[2020-10-21] MEDS: Zolpidem Tartrate 5 MG TAB PO PRN (22:51)
[2020-10-22 04:23] LABS: Cardiac Risk 3.7 (Less than 4.5)
[2020-10-22] MEDS ORDERED: Acetaminophen 325 MG TAB PO PRN (08:12)
[2020-10-22] MEDS ORDERED: traMADol HCl 50 MG TAB PO PRN (08:12)
[2020-10-22] MEDS: Aspirin Chewable 81 MG TAB PO SCH (08:19)
[2020-10-22] MEDS: Ivabradine 5 MG TAB PO SCH ×2 (08:19→20:57)
[2020-10-22] MEDS: FLUoxetine HCl 20 MG CAP PO SCH (08:19)
[2020-10-22] MEDS ORDERED: Fioricet 325/50/40 mg Tablet PO PRN (09:18)
[2020-10-22] MEDS ORDERED: Fioricet 325/50/40 mg Tablet PO SCH (09:30)
[2020-10-22] MEDS: Atorvastatin Calcium 20 MG TAB PO SCH (20:57)
[2020-10-22] MEDS: Zolpidem Tartrate 5 MG TAB PO PRN (20:57)
[2020-10-23] MEDS ORDERED: Vancomycin 1.5 GRAM/300 ML BAG 1.5 GM in Premix Bag 1 BAG IVPB SCH (07:00)
[2020-10-23] MEDS ORDERED: Midazolam HCl 2 mg/2 ml Vial ONE ×2 (09:32→09:36)
[2020-10-23] MEDS ORDERED: Fentanyl 100 MCG/2 ML VIAL ONE ×2 (09:32→09:36)
[2020-10-23] MEDS ORDERED: Gentamicin 80 MG/2 ML VIAL ONE ×2 (09:34→09:42)
[2020-10-23] MEDS ORDERED: CEFAZOLIN 1 GM VIAL ONE ×2 (09:34→09:42)
[2020-10-23] MEDS ORDERED: Famotidine/PF 20 mg/2ml Vial ONE (09:36)
[2020-10-23] MEDS ORDERED: Propofol 1,000 MG/100 ML VIAL IV ONE (09:36)
[2020-10-23] MEDS ORDERED: Lidocaine 1% (PF) 30 ML VIAL ONE (09:41)
[2020-10-23] MEDS ORDERED: Metoclopramide HCl 10 MG/2 ML VIAL ONE (09:58)
[2020-10-23] MEDS ORDERED: ePHEDrine 50 MG/ML VIAL ONE (09:58)
[2020-10-23] MEDS ORDERED: PHENYLEPHRINE-NS 100 MCG/ML 10 ML SYRINGE ONE (09:58)
[2020-10-23] MEDS ORDERED: Ondansetron PF 4 MG/2 ML Vial ONE (09:58)
[2020-10-23] MEDS ORDERED: Promethazine HCl 25 MG/ML VIAL IM PRN (11:24)
[2020-10-23] MEDS ORDERED: Ondansetron HCl/PF 4 MG/2 ML Vial IVP PRN (11:24)
[2020-10-23] MEDS ORDERED: Promethazine HCl 25 MG/ML VIAL SLOW IVP PRN (11:24)
[2020-10-23 12:31] VITALS: TEMP 97.2
[2020-10-23] MEDS: HYDROcodone/Acetaminophen 5/325 mg Tablet PO PRN ×2 (13:57→18:34)
[2020-10-23] MEDS: FLUoxetine HCl 20 MG CAP PO SCH (14:01)
[2020-10-23] MEDS: Ivabradine 5 MG TAB PO SCH ×2 (14:01→21:01)
[2020-10-23] MEDS: Aspirin Chewable 81 MG TAB PO SCH (14:01)
[2020-10-23] MEDS ORDERED: Iopamidol 370 76% 50 ML VIAL FS ONE (14:37)
[2020-10-23] MEDS: CEFAZOLIN 2 GM in Premix Bag 1 BAG IVPB SCH (18:34)
[2020-10-23] MEDS: Atorvastatin Calcium 20 MG TAB PO SCH (21:00)
[2020-10-23] MEDS: Zolpidem Tartrate 5 MG TAB PO PRN (21:00)
[2020-10-24] MEDS: HYDROcodone/Acetaminophen 5/325 mg Tablet PO PRN (00:06)
[2020-10-24] MEDS: CEFAZOLIN 2 GM in Premix Bag 1 BAG IVPB SCH (02:16)
[2020-10-24] MEDS: FLUoxetine HCl 20 MG CAP PO SCH (09:19)
[2020-10-24] MEDS: Ivabradine 5 MG TAB PO SCH (09:19)
[2020-10-24] MEDS: Aspirin Chewable 81 MG TAB PO SCH (09:19)
[2020-10-24] MEDS ORDERED: Minocycline HCl 50 MG CAP PO SCH (21:00)
== END 2020-10-24 11:05 | disposition home or self-care (01) | DRG 227 ==
LOC: ERS 16:29 → 2SW 18:46 → IMCU/EMU 10-21 01:55 → OBSVTOIN 10-21 10:00
PROVIDERS: ADMIT Student in an Organized Health Care Education/Training Program; ATTEND Family Medicine
PROC: 0JH608Z Insertion of Defibrillator Generator into Chest Subcutaneous Tissue and Fascia, Open Approach (ICD-10-PCS; principal; 2020-10-23)
PROC: 02HK3KZ Insertion of Defibrillator Lead into Right Ventricle, Percutaneous Approach (ICD-10-PCS; 2020-10-23)
PROC: 02H63KZ Insertion of Defibrillator Lead into Right Atrium, Percutaneous Approach (ICD-10-PCS; 2020-10-23)
PROC: 4B02XTZ Measurement of Cardiac Defibrillator, External Approach (ICD-10-PCS; 2020-10-24)
DX: R07.89 Other chest pain (principal); I42.8 Other cardiomyopathies; I50.22 Chronic systolic (congestive) heart failure; E11.9 Type 2 diabetes mellitus without complications; Z20.822 Contact with and (suspected) exposure to COVID-19; E78.5 Hyperlipidemia, unspecified; E78.00 Pure hypercholesterolemia, unspecified; Z96.652 Presence of left artificial knee joint; F32.9 Major depressive disorder, single episode, unspecified; I25.10 Atherosclerotic heart disease of native coronary artery without angina pectoris; I95.9 Hypotension, unspecified; R51.9 Headache, unspecified; Z88.8 Allergy status to other drugs, medicaments and biological substances; Z79.84 Long term (current) use of oral hypoglycemic drugs; Z79.82 Long term (current) use of aspirin; Z79.899 Other long term (current) drug therapy; Z87.442 Personal history of urinary calculi; Z90.49 Acquired absence of other specified parts of digestive tract; Z90.710 Acquired absence of both cervix and uterus
CPT/HCPCS: 33249; 36005; 36415; 36416; 71045; 71275; 75820; 80061; 82550; 83735; 83880; 85379; 87635; 90471; 90732; 93005; 93010; 94760; 96372; 96374; C1721; C1777; C1898; G0009; G0378; J0690; J1580; J1650; J2001; J2250; J2270; J2405; J2704; J2765; J3010; J3370; J3490; Q9967; S0028; U0003; U0005

== ENCOUNTER 2021-01-29 08:00 | Outpatient (CLI) | payer OTHER, MEDICARE ==
[2021-01-29 09:35] LABS: Hemoglobin 12.6 g/dL (12.0-15.5); Mean Corpuscular HGB CONC 31.7 g/dL (32.0-36.0); Mean Corpuscular Hemoglobin 28.9 pg (27.0-33.0); Mean Corpuscular Volume 91.3 fl (81.6-98.3); Mean Platelet Volume 12.1 fl (7.4-10.4); Platelet Count 214 10x3/uL (150-450); RBC Distribution Width 12.6 % (11.5-14.5); Red Blood Cell (RBC) Count 4.36 10x6/uL (3.90-5.03); White Blood Cell (WBC) Count 6.2 10x3/uL (3.5-10.5)
[2021-01-29 09:49] LABS: Prothrombin Time 10.8 sec (9.5-12.1)
[2021-01-29 10:04] LABS: Anion Gap 12 mmol/L (10-20); BUN (Urea Nitrogen) 13 mg/dL (9.8-20.1); Calc. Creatinine Clearance 0 mL/min (70-130); Carbon Dioxide 26 mmol/L (23-31); Chloride 106 mmol/L (98-107); Glucose 194 mg/dL (80-115); Potassium 4.4 mmol/L (3.5-5.1); Sodium 140 mmol/L (136-145)
== END 2021-01-29 08:01 | disposition home or self-care (01) ==
LOC: LABBT 08:00
PROVIDERS: ATTEND Internal Medicine Cardiovascular Disease
DX: Z01.812 Encounter for preprocedural laboratory examination (principal); I48.0 Paroxysmal atrial fibrillation
CPT/HCPCS: 80048; 85027; 85610

== ENCOUNTER 2021-02-03 07:02 | Day surgery (SDC) | payer OTHER, MEDICARE ==
[2021-02-02 13:04] VITALS: BMI 25.8
[2021-02-03] MEDS ORDERED: Heparin 25,000 units/D5W 500 ML ONE (10:37)
[2021-02-03] MEDS ORDERED: Heparin 10,000 UNITS/ 10 ML VIAL ONE (10:37)
[2021-02-03] MEDS ORDERED: Midazolam HCl 2 mg/2 ml Vial ONE (11:03)
[2021-02-03] MEDS ORDERED: Fentanyl 100 MCG/2 ML VIAL ONE ×2 (11:04→15:13)
[2021-02-03] MEDS ORDERED: Dexamethasone 20 MG/5 ML VIAL ONE (11:18)
[2021-02-03] MEDS ORDERED: ePHEDrine Sulfate 50 MG/10 ML VIAL ONE (11:18)
[2021-02-03] MEDS ORDERED: Ondansetron PF 4 MG/2 ML Vial ONE (11:18)
[2021-02-03] MEDS ORDERED: Lidocaine 1% PF 5 ML VIAL ONE (11:18)
[2021-02-03] MEDS ORDERED: Glycopyrrolate 0.2 MG/ML 5 ML SYRINGE ONE (11:18)
[2021-02-03] MEDS ORDERED: Rocuronium Bromide 10 MG/ML (10ML VIAL) ONE (11:18)
[2021-02-03] MEDS ORDERED: PROPOFOL 200 MG/20 ML VIAL ONE (11:18)
[2021-02-03] MEDS ORDERED: Phenylephrine 10 MG/ML VIAL ONE (11:27)
[2021-02-03] MEDS ORDERED: Protamine Sulfate 50 MG/5 ML VIAL ONE (13:47)
[2021-02-03] MEDS ORDERED: Meperidine HCl/PF 25 MG/ML VIAL SLOW IVP PRN (13:54)
[2021-02-03] MEDS ORDERED: Promethazine HCl 25 MG/ML VIAL IVPB PRN (13:54)
[2021-02-03] MEDS ORDERED: Ondansetron HCl/PF 4 MG/2 ML Vial IVP PRN (13:54)
== END 2021-02-03 18:06 | disposition home or self-care (01) ==
LOC: CCL 07:02
PROVIDERS: ATTEND Internal Medicine Cardiovascular Disease
DX: I48.0 Paroxysmal atrial fibrillation (principal); I42.8 Other cardiomyopathies; I50.22 Chronic systolic (congestive) heart failure; I25.10 Atherosclerotic heart disease of native coronary artery without angina pectoris; E11.9 Type 2 diabetes mellitus without complications; Z79.01 Long term (current) use of anticoagulants; Z79.84 Long term (current) use of oral hypoglycemic drugs; Z79.899 Other long term (current) drug therapy; Z91.048 Other nonmedicinal substance allergy status
CPT/HCPCS: 36416; 76942; 85347; 93005; 93312; 93613; 93621; 93655; 93656; 93662; C1732; C1759; C1894; C2630; J1100; J1644; J2250; J2370; J2405; J2704; J2720; J3010

== ENCOUNTER 2021-04-20 22:31 | Inpatient (IN) | payer OTHER, MEDICARE ==
[2021-04-21 01:48] VITALS: BMI 28.1
[2021-04-21] MEDS ORDERED: Acetaminophen 325 MG TAB PO PRN (02:18)
[2021-04-21] MEDS ORDERED: Acetaminophen 650 MG Suppository PR PRN (02:18)
[2021-04-21] MEDS ORDERED: Ondansetron PF 4 MG/2 ML Vial IVP PRN (02:18)
[2021-04-21] MEDS ORDERED: Ondansetron ODT 4 MG TAB PO PRN (02:18)
[2021-04-21] MEDS ORDERED: Piperacillin/Tazobactam 3.375 GM in Sodium Chloride 0.9% 100 ML IVPB SCH (02:30)
[2021-04-21] MEDS: Sodium Chloride 0.9% 1,000 ML IV SCH ×2 (02:55→10:31)
[2021-04-21] MEDS: Morphine 4 MG/ML VIAL SLOW IVP PRN ×3 (02:55→21:01)
[2021-04-21 04:40] LABS: #Lymphocytes 1.1 thou/uL (1.20-3.40); #Monocytes 0.5 thou/uL (0.11-0.59); #Neutrophils 7.9 thou/uL (1.40-6.50); %Basophils 0.3 % (0.0-1.0); %Eosinophils 0.4 % (0.0-10.0); %Lymphocytes 11.6 % (21.0-51.0); %Monocytes 4.8 % (0.0-10.0); %Neutrophils 82.9 % (42.0-75.0); Hemoglobin 12.1 g/dL (12.0-16.0); Mean Corpuscular HGB CONC 32.8 g/dL (32.0-36.0); Mean Corpuscular Hemoglobin 29.9 pg (27.0-31.0); Mean Corpuscular Volume 91.2 fL (78.0-98.0); Mean Platelet Volume 9.3 fL (7.4-10.4); Platelet Count 157 thou/uL (130-400); RBC Distribution Width 11.8 % (11.5-14.5); Red Blood Cell (RBC) Count 4.05 mill/uL (4.20-5.40); White Blood Cell (WBC) Count 9.5 thou/uL (4.8-10.8)
[2021-04-21 04:55] LABS: Anion Gap 15 mmol/L (10-20); BUN (Urea Nitrogen) 20 mg/dL (9.8-20.1); Calc. Creatinine Clearance 78 mL/min (70-130); Calcium 8.6 mg/dL (7.8-10.44); Carbon Dioxide 18 mmol/L (23-31); Chloride 109 mmol/L (98-107); Glucose 152 mg/dL (80-115); Potassium 3.3 mmol/L (3.5-5.1); Sodium 139 mmol/L (136-145)
[2021-04-21] MEDS ORDERED: Dextrose 5% in Water 1,000 ML IV PRN (06:44)
[2021-04-21] MEDS ORDERED: HumaLOG 300 UNITS/3 ML VIAL SC PRN ×2 (06:44)
[2021-04-21] MEDS ORDERED: Dextrose 50% Abboject 50 ML SYRINGE SLOW IVP PRN (06:44)
[2021-04-21] MEDS: Piperacillin/Tazobactam 3.375 GM in Sodium Chloride 0.9% 100 ML IVPB SCH ×2 (12:00→20:38)
[2021-04-21] MEDS ORDERED: Piperacillin/Tazobactam 3.375 GM VIAL ONE (12:33)
[2021-04-21] MEDS ORDERED: Sodium Chloride 0.9% 100 ML ONE (12:33)
[2021-04-21] MEDS ORDERED: Iothalamate Meglumine 60% 30 ML VIAL FS ONE (12:43)
[2021-04-21] MEDS ORDERED: Fentanyl 100 MCG/2 ML VIAL ONE ×2 (13:19→14:09)
[2021-04-21] MEDS ORDERED: Ondansetron PF 4 MG/2 ML Vial ONE (13:31)
[2021-04-21] MEDS ORDERED: Dexamethasone 20 MG/5 ML VIAL ONE (13:31)
[2021-04-21] MEDS ORDERED: Lidocaine 1% PF 5 ML VIAL ONE (13:31)
[2021-04-21] MEDS ORDERED: PHENYLEPHRINE-NS 100 MCG/ML 10 ML SYRINGE ONE (13:31)
[2021-04-21] MEDS ORDERED: PROPOFOL 200 MG/20 ML VIAL ONE (13:31)
[2021-04-21] MEDS ORDERED: ePHEDrine 50 MG/ML VIAL ONE (13:31)
[2021-04-21] MEDS ORDERED: Ondansetron HCl/PF 4 MG/2 ML Vial IVP PRN (13:51)
[2021-04-21] MEDS ORDERED: Promethazine HCl 25 MG/ML VIAL IVPB PRN (13:51)
[2021-04-21] MEDS ORDERED: Promethazine HCl 25 MG/ML VIAL IM PRN (13:51)
[2021-04-21] MEDS ORDERED: Oxybutynin 5 MG TAB PO PRN (15:27)
[2021-04-21] MEDS ORDERED: Phenazopyridine HCl 100 MG TAB PO PRN (15:27)
[2021-04-21] MEDS ORDERED: diphenhydrAMINE 25 MG CAP PO PRN (17:03)
[2021-04-21] MEDS ORDERED: Lorazepam 2 MG/ML VIAL SLOW IVP PRN (17:04)
[2021-04-21] MEDS ORDERED: Potassium Chloride 20 MEQ TAB PO SCH (19:30)
[2021-04-21] MEDS ORDERED: Zolpidem Tartrate 5 MG TAB PO SCH (21:00)
[2021-04-22] MEDS: Sodium Chloride 0.9% 1,000 ML IV SCH ×2 (02:00→10:44)
[2021-04-22] MEDS: Piperacillin/Tazobactam 3.375 GM in Sodium Chloride 0.9% 100 ML IVPB SCH (04:18)
[2021-04-22 09:58] VITALS: BP 120/58; TEMP 98.8
== END 2021-04-22 11:10 | disposition home or self-care (01) | DRG 660 ==
LOC: ONC 22:31 → OBSVTOIN 22:31
PROVIDERS: ADMIT Student in an Organized Health Care Education/Training Program; ATTEND Internal Medicine
PROC: 0T778DZ Dilation of Left Ureter with Intraluminal Device, Via Natural or Artificial Opening Endoscopic (ICD-10-PCS; principal; 2021-04-21)
PROC: BT1F1ZZ Fluoroscopy of Left Kidney, Ureter and Bladder using Low Osmolar Contrast (ICD-10-PCS; 2021-04-21)
DX: N13.2 Hydronephrosis with renal and ureteral calculous obstruction (principal); I50.22 Chronic systolic (congestive) heart failure; Z96.652 Presence of left artificial knee joint; E87.6 Hypokalemia; N18.9 Chronic kidney disease, unspecified; E11.22 Type 2 diabetes mellitus with diabetic chronic kidney disease; G89.29 Other chronic pain; Z79.899 Other long term (current) drug therapy; Z90.49 Acquired absence of other specified parts of digestive tract; Z90.710 Acquired absence of both cervix and uterus; Z96.82 Presence of neurostimulator; Z87.442 Personal history of urinary calculi; Z95.810 Presence of automatic (implantable) cardiac defibrillator; Z91.048 Other nonmedicinal substance allergy status
CPT/HCPCS: 36415; 36416; 74420; 80048; 85025; 87086; C2617; J1100; J1815; J2270; J2405; J2543; J2704; J3010; J3490; J7050

== ENCOUNTER 2021-04-28 12:43 | Outpatient (CLI) | payer OTHER, MEDICARE ==
[2021-04-28 14:12] LABS: PTT 25.5 sec (22.0-33.0); Prothrombin Time 11.3 sec (9.5-12.1)
[2021-04-28 14:15] LABS: Anion Gap 15 mmol/L (10-20); BUN (Urea Nitrogen) 16 mg/dL (9.8-20.1); Calc. Creatinine Clearance 0 mL/min (70-130); Calcium 10.7 mg/dL (7.8-10.44); Carbon Dioxide 25 mmol/L (23-31); Chloride 103 mmol/L (98-107); Glucose 156 mg/dL (80-115); Sodium 139 mmol/L (136-145)
[2021-04-28 14:16] LABS: Hemoglobin 12.7 g/dL (12.0-15.5); Mean Corpuscular HGB CONC 32.2 g/dL (32.0-36.0); Mean Corpuscular Hemoglobin 28.3 pg (27.0-33.0); Mean Corpuscular Volume 87.8 fl (81.6-98.3); Mean Platelet Volume 11.3 fl (7.4-10.4); Platelet Count 270 10x3/uL (150-450); RBC Distribution Width 13.1 % (11.5-14.5); Red Blood Cell (RBC) Count 4.49 10x6/uL (3.90-5.03); White Blood Cell (WBC) Count 8.2 10x3/uL (3.5-10.5)
[2021-04-28 14:24] LABS: Bilirubin 1+ (Negative); Blood, Urine 250 (Negative); Glucose, Urine (Dipstick) Normal (Negative); Ketone, Urine 5 mg/dL (Negative); Leukocyte 500 (Negative); Nitrite Positive (Negative); Protein, Urine (Dipstick) 500 mg/dl (Neg-Trace)
[2021-04-28 14:25] LABS: Clarity Cloudy (Clear)
[2021-04-28 14:39] LABS: RBC/HPF Greater than 50 HPF (0-3)
[2021-04-28 14:40] LABS: Squamous Epithelial 0-3 HPF (0-3)
[2021-04-28 14:41] LABS: Bacteria/HPF 1+ HPF (None Seen); Mucous/LPF 1+ LPF (<2+); Renal Epithelial 0-3 HPF (None Seen)
[2021-04-29 08:05] LABS: SARS-CoV-2 PCR by NAA Not Detected (NotDetected)
== END 2021-04-28 12:44 | disposition home or self-care (01) ==
LOC: LABBT 12:43
PROVIDERS: ATTEND Family Medicine
DX: Z01.818 Encounter for other preprocedural examination (principal); N20.1 Calculus of ureter; Z20.822 Contact with and (suspected) exposure to COVID-19
CPT/HCPCS: 80048; 81001; 85027; 85610; 85730; 87077; 87086; 93005; 93010; U0003; U0005

== ENCOUNTER 2021-05-01 06:31 | Day surgery (SDC) | payer OTHER, MEDICARE ==
[2021-04-30 10:51] VITALS: BMI 27.3
[2021-05-01] MEDS ORDERED: Levofloxacin 500 mg/D5W 100 ml Premix Bag ONE (08:01)
[2021-05-01] MEDS ORDERED: Scopolamine 1.5 mg/72 hour Patch ONE (08:05)
[2021-05-01] MEDS ORDERED: B & O 30 MG SUPP ONE (08:44)
[2021-05-01] MEDS ORDERED: Fentanyl 100 MCG/2 ML VIAL ONE ×4 (08:45→11:25)
[2021-05-01] MEDS ORDERED: Vancomycin 1 GM/200 ML BAG ONE (08:55)
[2021-05-01] MEDS ORDERED: SUGAMMADEX SODIUM 200 MG/2 ML VIAL ONE (09:06)
[2021-05-01] MEDS ORDERED: Lidocaine 1% PF 5 ML VIAL ONE (09:20)
[2021-05-01] MEDS ORDERED: Rocuronium Bromide 10 MG/ML (10ML VIAL) ONE (09:20)
[2021-05-01] MEDS ORDERED: Ondansetron PF 4 MG/2 ML Vial ONE (09:20)
[2021-05-01] MEDS ORDERED: Esmolol 100 MG/10 ML VIAL ONE (09:20)
[2021-05-01] MEDS ORDERED: Dexamethasone 20 MG/5 ML VIAL ONE (09:20)
[2021-05-01] MEDS ORDERED: PHENYLEPHRINE-NS 100 MCG/ML 10 ML SYRINGE ONE (09:20)
[2021-05-01] MEDS ORDERED: Glycopyrrolate 0.2 MG/ML 5 ML SYRINGE ONE (09:20)
[2021-05-01] MEDS ORDERED: HYDROcodone/Acetaminophen 5/325 mg Tablet ONE (12:47)
[2021-05-07 16:36] LABS: CA Oxalate Dihydrate 10 % (.); CA Oxalate Monohydrate 90 % (.); Color Brown (.); Stone Weight 53 mg (.)
== END 2021-05-01 13:28 | disposition home or self-care (01) ==
LOC: SDC 06:31
PROVIDERS: ATTEND Urology
PROC: 0T778DZ Dilation of Left Ureter with Intraluminal Device, Via Natural or Artificial Opening Endoscopic (ICD-10-PCS; principal; 2021-05-01)
PROC: 0TC48ZZ Extirpation of Matter from Left Kidney Pelvis, Via Natural or Artificial Opening Endoscopic (ICD-10-PCS; principal; 2021-05-01)
DX: N20.0 Calculus of kidney (principal); N39.0 Urinary tract infection, site not specified; E11.9 Type 2 diabetes mellitus without complications; G89.29 Other chronic pain; M54.9 Dorsalgia, unspecified; Z79.2 Long term (current) use of antibiotics; Z79.01 Long term (current) use of anticoagulants; Z79.84 Long term (current) use of oral hypoglycemic drugs; Z79.899 Other long term (current) drug therapy; Z91.048 Other nonmedicinal substance allergy status; Z95.810 Presence of automatic (implantable) cardiac defibrillator; Z96.82 Presence of neurostimulator
CPT/HCPCS: 74420; 80048; 81001; 82365; 85027; 85610; 85730; 87077; 87086; 88300; 93005; 93010; C2617; J1100; J1956; J2405; J3010; J3370; U0003; U0005

== ENCOUNTER 2022-12-16 07:43 | Inpatient (IN) | payer MEDICARE ==
[2022-12-16 10:04] VITALS: BMI 27.1
[2022-12-16] MEDS ORDERED: Ondansetron PF 4 MG/2 ML Vial IVP PRN (13:07)
[2022-12-16] MEDS ORDERED: HYDROcodone/Acetaminophen 5/325 mg Tablet PO PRN (13:07)
[2022-12-16] MEDS ORDERED: Acetaminophen 325 MG TAB PO PRN (13:07)
[2022-12-16] MEDS ORDERED: HumaLOG 300 UNITS/3 ML VIAL SC PRN (13:15)
[2022-12-16] MEDS ORDERED: Dextrose 50% Abboject 50 ML SYRINGE SLOW IVP PRN (13:15)
[2022-12-16] MEDS ORDERED: Dextrose 5% in Water 1,000 ML IV PRN (13:15)
[2022-12-16] MEDS ORDERED: Pantoprazole 40 MG VIAL IVP SCH (13:15)
[2022-12-16 13:25] LABS: #Basophils 0.1 thou/uL (0.0-0.2); #Eosinphils 0.1 thou/uL (0.0-0.7); #Monocytes 0.4 thou/uL (0.11-0.59); #Neutrophils 4.3 thou/uL (1.40-6.50); %Basophils 0.7 % (0.0-1.0); %Eosinophils 1.9 % (0.0-10.0); %Lymphocytes 32.9 % (21.0-51.0); %Monocytes 5.8 % (0.0-10.0); %Neutrophils 58.2 % (42.0-75.0); Hemoglobin 11.4 g/dL (12.0-16.0); Mean Corpuscular Hemoglobin 28.8 pg (27.0-31.0); Mean Corpuscular Volume 92.9 fl (78.0-98.0); Platelet Count 199 10x3/uL (130-400); RBC Distribution Width 12.7 % (11.5-14.5); Red Blood Cell (RBC) Count 3.96 mill/uL (4.20-5.40); White Blood Cell (WBC) Count 7.4 10x3/uL (4.8-10.8)
[2022-12-16 13:50] LABS: ALT (SGPT) 18 U/L (8-55); AST (SGOT) 13 U/L (5-34); Albumin 3.4 g/dL (3.4-4.8); Alkaline Phosphatase 66 U/L (40-110); Anion Gap 11 mmol/L (10-20); BUN (Urea Nitrogen) 16 mg/dL (9.8-20.1); Bilirubin, Total 0.2 mg/dL (0.2-1.2); Calc. Creatinine Clearance 76 mL/min (70-130); Calcium 8.1 mg/dL (7.8-10.44); Carbon Dioxide 22 mmol/L (23-31); Chloride 109 mmol/L (98-107); Estimated GFR 71; Globulin 2.1 g/dL (2.4-3.5); Glucose 219 mg/dL (80-115); Magnesium 1.9 mg/dL (1.6-2.6); Potassium 4.5 mmol/L (3.5-5.1); Protein, Total 5.5 g/dL (5.8-8.1); Sodium 137 mmol/L (136-145)
[2022-12-16 14:08] LABS: Troponin I Less than 0.010 ng/mL (< 0.028)
[2022-12-16] MEDS ORDERED: Morphine 4 MG/ML VIAL SLOW IVP PRN (15:38)
[2022-12-16] MEDS: Gabapentin 300 MG CAP PO SCH ×2 (15:38→21:04)
[2022-12-16] MEDS: Sacubitril 49 MG/Valsartan 51 MG TABLET PO SCH (20:58)
[2022-12-16] MEDS ORDERED: Atorvastatin Calcium 40 MG TAB PO SCH (21:00)
[2022-12-16] MEDS: Apixaban 5 MG TAB PO SCH (21:06)
[2022-12-16] MEDS ORDERED: Zolpidem Tartrate 5 MG TAB PO SCH (21:30)
[2022-12-17 04:40] LABS: #Basophils 0.1 thou/uL (0.0-0.2); #Eosinphils 0.2 thou/uL (0.0-0.7); #Monocytes 0.6 thou/uL (0.11-0.59); #Neutrophils 4.3 thou/uL (1.40-6.50); %Basophils 0.8 % (0.0-1.0); %Eosinophils 2.2 % (0.0-10.0); %Lymphocytes 34.4 % (21.0-51.0); %Monocytes 7.3 % (0.0-10.0); %Neutrophils 54.9 % (42.0-75.0); Mean Corpuscular HGB CONC 29.7 g/dL (32.0-36.0); Mean Corpuscular Hemoglobin 27.7 pg (27.0-31.0); Mean Corpuscular Volume 93.3 fl (78.0-98.0); Mean Platelet Volume 11.8 fL (7.4-10.4); Platelet Count 203 10x3/uL (130-400); RBC Distribution Width 12.9 % (11.5-14.5); Red Blood Cell (RBC) Count 4.33 mill/uL (4.20-5.40); White Blood Cell (WBC) Count 7.9 10x3/uL (4.8-10.8)
[2022-12-17 05:07] LABS: ALT (SGPT) 17 U/L (8-55); AST (SGOT) 12 U/L (5-34); Albumin 3.5 g/dL (3.4-4.8); Alkaline Phosphatase 69 U/L (40-110); Anion Gap 11 mmol/L (10-20); BUN (Urea Nitrogen) 13 mg/dL (9.8-20.1); Bilirubin, Total 0.2 mg/dL (0.2-1.2); Calc. Creatinine Clearance 84 mL/min (70-130); Calcium 8.7 mg/dL (7.8-10.44); Carbon Dioxide 23 mmol/L (23-31); Chloride 107 mmol/L (98-107); Estimated GFR 81; Globulin 2.3 g/dL (2.4-3.5); Glucose 182 mg/dL (80-115); Potassium 4.3 mmol/L (3.5-5.1); Protein, Total 5.8 g/dL (5.8-8.1); Sodium 137 mmol/L (136-145)
[2022-12-17] MEDS ORDERED: Spironolactone 25 MG TAB PO SCH (09:00)
[2022-12-17] MEDS ORDERED: Pantoprazole 40 MG VIAL IVP SCH (09:00)
[2022-12-17] MEDS: Sacubitril 49 MG/Valsartan 51 MG TABLET PO SCH (09:15)
[2022-12-17] MEDS: Apixaban 5 MG TAB PO SCH (09:16)
[2022-12-17] MEDS: Gabapentin 300 MG CAP PO SCH ×2 (09:16→14:37)
[2022-12-17 11:36] VITALS: BP 111/55; TEMP 97.1
[2022-12-20] MEDS ORDERED: Torsemide 10 MG TAB PO PRN (09:00)
== END 2022-12-17 16:17 | disposition home or self-care (01) | DRG 313 ==
LOC: 2NO 09:07
PROVIDERS: ADMIT Internal Medicine; ATTEND Internal Medicine
DX: R07.89 Other chest pain (principal); I42.9 Cardiomyopathy, unspecified; I50.20 Unspecified systolic (congestive) heart failure; I42.8 Other cardiomyopathies; E11.9 Type 2 diabetes mellitus without complications; E78.00 Pure hypercholesterolemia, unspecified; K21.9 Gastro-esophageal reflux disease without esophagitis; I25.10 Atherosclerotic heart disease of native coronary artery without angina pectoris; E78.5 Hyperlipidemia, unspecified; G89.29 Other chronic pain; Z88.8 Allergy status to other drugs, medicaments and biological substances; Z79.84 Long term (current) use of oral hypoglycemic drugs; Z79.01 Long term (current) use of anticoagulants; Z95.810 Presence of automatic (implantable) cardiac defibrillator; Z79.899 Other long term (current) drug therapy; Z90.49 Acquired absence of other specified parts of digestive tract; Z90.710 Acquired absence of both cervix and uterus; Z98.890 Other specified postprocedural states
CPT/HCPCS: 36415; 80053; 83735; 85025; 93005; 93010; C9113; J2270